=== PATIENT | female | born 2000 ===

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

== ENCOUNTER 2018-06-16 06:06 | Inpatient (IN) | payer MEDICAID, OTHER ==
[2018-06-16 06:07] VITALS: BMI 24.8
[2018-06-16] MEDS ORDERED: Sodium Chloride 0.9% 1,000 ML IV ONE ×2 (06:26→12:00)
--- NOTE | 2018-06-16 06:26 | C.PDOC ---
History Of Present Illness 17 year old female presents to the ED c/o sharp, stabbing abdominal pain that started approximately at 03:00. Patient denies fever, chills, nausea, vomit, diarrhea, dysuria, hematuria, back pain. Time Seen by Provider: 06/16/18 06:26 Chief Complaint (Nursing): Abdominal Pain History Per: Patient History/Exam Limitations: no limitations Onset/Duration Of Symptoms: Hrs (03:00) Current Symptoms Are (Timing): Still Present Context: Other Severity: Moderate Pain Scale Rating Of: 4 Location Of Pain/Discomfort: Diffuse Quality Of Discomfort: Sharp, Stabbing Associated Symptoms: denies: Nausea, Vomiting, Diarrhea, Urinary Symptoms Exacerbating Factors: None Alleviating Factors: None Recent travel outside of the [place]: No Additional History Per: Patient, Family Abnormal Vaginal Bleeding: No Past Medical History Reviewed: Historical Data, Nursing Documentation, Vital Signs Vital Signs: Last Vital Signs Temp 97.7 F 06/16/18 06:10 Pulse 94 H 06/16/18 06:10 Resp 20 06/16/18 06:10 BP 131/88 06/16/18 06:10 Pulse Ox 99 06/16/18 06:10 - Medical History PMH: Asthma, Diabetes (Type 1), HTN, Hypercholesterolemia, Hypothyroidism Denies: Chronic Kidney Disease Surgical History: No Surg Hx - [facility] Procedures OTHER SKIN & SUBQ I D (11/07/14) Family History: States: Unknown Family Hx - Social History Hx Tobacco Use: No Hx Alcohol Use: No Hx Substance Use: No - Immunization History Hx Tetanus Toxoid Vaccination: Yes Hx Influenza Vaccination: Yes Hx Pneumococcal Vaccination: Yes Review Of Systems Constitutional: Negative for: Fever, Chills Cardiovascular: Negative for: Chest Pain Respiratory: Negative for: Shortness of Breath Gastrointestinal: Positive for: Abdominal Pain. Negative for: Nausea, Vomiting, Diarrhea, Constipation Genitourinary: Negative for: Dysuria, Hematuria Musculoskeletal: Negative for: Back Pain Skin: Negative for: Rash Physical Exam - Physical Exam Appears: Non-toxic, No Acute Distress Skin: Warm, Dry Head: Normacephalic Eye(s): bilateral: Normal Inspection Oral Mucosa: Moist Neck: Supple Chest: Symmetrical Cardiovascular: Rhythm Regular Respiratory: No Rales, No Rhonchi, No Wheezing Gastrointestinal/Abdominal: Soft, Tenderness (diffuse ), Guarding (voluntary), No Rebound Back: Normal Inspection Extremity: Normal ROM Extremity: Bilateral: Atraumatic, Normal Color And Temperature, Normal ROM Neurological/Psych: Oriented x3, Normal Speech, Normal Cognition Gait: Steady ED Course And Treatment O2 Sat by Pulse Oximetry: 99 (ON RA) Pulse Ox Interpretation: Normal Progress Note: Plan: - Labs. - pepcid 20 mg IVP. - IV fluids. - UA Disposition Counseled Patient/Family Regarding: Studies Performed, Diagnosis - Disposition Disposition Time: 06:26 Condition: FAIR Forms: [employer] (Vietnamese) - Clinical Impression Clinical Impression: Abdominal pain - Scribe Statement The provider has reviewed the documentation as recorded by the Scribe Castillo Hayes All medical record entries made by the Scribe were at my direction and perso mónica dictated by me. I have reviewed the chart and agree that the record accurately reflects my personal performance of the history, physical exam, medical decision making, and the department course for this patient. I have also personally directed, reviewed, and agree with the discharge instructions and disposition. Physician Patient Turnover Patient Signed Over To: Buzz Hardy Handoff Comments: pending labs, re-eval and dispo
[2018-06-16] MEDS ORDERED: Sodium Chloride 0.9% 1,000 ML ONE ×2 (06:35→12:06)
[2018-06-16 06:38] LABS: BASO # 0.1 K/uL (0.0-0.2); BASO % 0.7 % (0.0-2.0); EOS # 0.2 K/uL (0.0-0.7); EOS % 1.9 % (0.0-4.0); HEMOGLOBIN 12.5 g/dL (11.0-16.0); LYMPH # 2.9 K/uL (1.0-4.3); LYMPH % 23.6 % (20.0-40.0); MEAN CORPUSCULAR HEMOGLOBIN 30.8 pg (27.0-31.0); MEAN CORPUSCULAR HGB CONC 33.5 g/dL (33.0-37.0); MEAN PLATELET VOLUME 10.5 fL (7.2-11.7); MONO # 0.5 K/uL (0.0-0.8); NEUT # 8.4 K/uL (1.8-7.0); NEUT % 69.8 % (50.0-75.0); RBC 4.05 Mil/uL (3.80-5.20); RED CELL DISTRIBUTION WIDTH 12.6 % (11.5-14.5); WHITE BLOOD COUNT 12.1 K/uL (4.8-10.8)
[2018-06-16 06:47] LABS: INR 0.9
[2018-06-16] MEDS ORDERED: Morphine 4 MG/ML VIAL ONE (07:02)
[2018-06-16 07:10] LABS: PROTHROMBIN TIME 9.4 SECONDS (9.7-12.2)
[2018-06-16 07:46] LABS: SQUAMOUS EPITHIAL 2 /hpf (0-5); URINE BACTERIA RARE (<OCC); URINE BILIRUBIN NEGATIVE (NEGATIVE); URINE BLOOD NEGATIVE (NEGATIVE); URINE CLARITY Clear (Clear); URINE COLOR Straw (YELLOW); URINE GLUCOSE (UA) NORMAL (Normal); URINE LEUKOCYTE ESTERASE 3+ Leu/uL (Negative); URINE PROTEIN NEGATIVE (NEGATIVE); URINE UROBILINOGEN NORMAL mg/dL (0.2-1.0)
[2018-06-16 07:50] LABS: HCG,QUALITATIVE URINE NEGATIVE (NEGATIVE)
[2018-06-16 08:08] LABS: ALB/GLOB RATIO 1.2 (1.0-2.1); ALBUMIN 3.8 g/dL (3.5-5.0); ALT/SGPT 16 U/L (9-52); AST/SGOT 17 U/L (14-36); BLOOD UREA NITROGEN 16 mg/dL (7-17); CALCIUM 8.4 mg/dl (8.6-10.4); GFR NON-AFRICAN AMERICAN > 60
--- NOTE | 2018-06-16 09:39 | RAD ---
Date of service: 06/16/2018 HISTORY: abd pain COMPARISON: 07/21/2017 FINDINGS: LUNGS: No active pulmonary disease. PLEURA: No significant pleural effusion identified, no pneumothorax apparent. CARDIOVASCULAR: No aortic atherosclerotic calcification present. Normal cardiac size. No pulmonary vascular congestion. OSSEOUS STRUCTURES: No significant abnormalities. VISUALIZED UPPER ABDOMEN: Normal. OTHER FINDINGS: None. IMPRESSION: No active disease.
[2018-06-16] MEDS ORDERED: Iodixanol 320 MG/ML 100 ML BOTTLE IV ONE (10:10)
--- NOTE | 2018-06-16 10:55 | CT ---
Date of service: 06/16/2018 PROCEDURE: CT Abdomen and Pelvis with contrast HISTORY: rlq pain COMPARISON: None available TECHNIQUE: Contrast dose: Radiation dose: Total exam DLP = 637.09 mGy-cm. This CT exam was performed using one or more of the following dose reduction techniques: Automated exposure control, adjustment of the mA and/or kV according to patient size, and/or use of iterative reconstruction technique. FINDINGS: LOWER THORAX: No visible consolidation, pleural effusion, or pneumothorax. LIVER: Hepatomegaly. Faint hypodensity by the falciform ligament, possibly focal fatty infiltration. GALLBLADDER AND BILE DUCTS: Unremarkable. PANCREAS: Unremarkable. SPLEEN: Unremarkable. ADRENALS: Unremarkable. KIDNEYS AND URETERS: The kidneys enhance symmetrically. No hydronephrosis or obstructing calculus identified. VASCULATURE: No aortic aneurysm. No atherosclerotic calcification or mural plaque present. BOWEL: Stomach is nondistended. Lack of oral contrast limits evaluation for bowel pathology. Bowel loops appear within normal limits of caliber without evidence of obstruction. APPENDIX: The appendix is dilated measuring approximately 11 mm in diameter and appears thick walled. PERITONEUM: No significant free fluid. No definite free air. LYMPH NODES: No bulky adenopathy identified. BLADDER: Unremarkable. REPRODUCTIVE: The uterus is present. Probable 1.8 cm right and 1.1 cm left ovarian cysts. BONES: No acute osseous abnormality is detected. OTHER FINDINGS: None. IMPRESSION: Thick-walled dilated appendix appears consistent with acute appendicitis. Correlate clinically. Bilateral pelvic cystic lesions appear consistent with ovarian cysts. Recommend pelvic ultrasound follow-up. Hepatomegaly. Faint hypodensity by the falciform ligament, possibly focal fatty infiltration. Emergent findings discussed with Dr. Hardy on 06/16/18 at 10:47 a.m.
[2018-06-16] MEDS ORDERED: (Novolin R) Insulin Human Regular 100 units/ml vial IVP ONE ×2 (12:00→16:58)
[2018-06-16] MEDS ORDERED: (Novolog) Insulin Aspart, Recombinant 100 u/ml 10 ml vial ONE ×2 (12:06→12:07)
[2018-06-16] MEDS: Sodium Chloride 0.9% 1,000 ML IV SCH ×2 (13:52→20:56)
--- NOTE | 2018-06-16 14:45 | CP.PCM.CON ---
<JayJacquelyn - Last Filed: 06/16/18 14:36> History of Present Illness - History of Present Illness History of Present Illness: General surgery consult note for Dr. Wiley Pt is a 17F with PMH of DM1, HTN, Asthma, hypothyroidism who presents with abdominal pain since yesterday AM. patient states that the pain was in the epigastrium and BL upper quadrants at first and then moved to the RLQ. patient states that it is unrelated to eating food, is worse when she is lying flat, and is sharp in nature. patient states that she has had orange colored diarrhea since yesterday AM, nausea but no vomiting, subjective fevers resolved with tylenol, increased urinary frequency, but no hematuria or dysuria, and BL lower back pain. patient denies any chest pain, SOB, or any other symptoms. Patient has never had a similar episode before PMH: HTN, DMI, asthma, hypothyroidism PSH: tooth abscess and neck cyst excision ALL: shellfish, lovenox Social: use vaporized nicotine, denies ETOH, denies drugs Review of Systems - Review of Systems All systems: reviewed and no additional remarkable complaints except (as per HPI) Past Patient History - Infectious Disease Hx of Infectious Diseases: None - Tetanus Immunizations Tetanus Immunization: Up to Date (All immunizations are up to date) - Past Medical History & Family History Past Medical History?: Yes Past Family History: Reviewed and not pertinent - Past Social History Smoking Status: vaporized nicotine Alcohol: None Drugs: Denies Home Situation {Lives}: With Family - CARDIAC Hx Hypercholesterolemia: Yes Hx Hypertension: Yes - PULMONARY Hx Asthma: Yes - NEUROLOGICAL Hx Neurological Disorder: No - HEENT Hx HEENT Problems: No - RENAL Hx Chronic Kidney Disease: No - ENDOCRINE/METABOLIC Hx Hypothyroidism: Yes - HEMATOLOGICAL/ONCOLOGICAL Hx Blood Disorders: No - INTEGUMENTARY Hx Dermatological Problems: No - MUSCULOSKELETAL/RHEUMATOLOGICAL Hx Musculoskeletal Disorders: No - GASTROINTESTINAL Hx Gastrointestinal Disorders: No - GENITOURINARY/GYNECOLOGICAL Hx Genitourinary Disorders: No - PSYCHIATRIC Hx Substance Use: No - SURGICAL HISTORY Hx Surgeries: Yes Other/Comment: oral surgery - ANESTHESIA Hx Anesthesia: Yes Hx Anesthesia Reactions: No Meds Allergies/Adverse Reactions: Allergies Allergy/AdvReac Type Severity Reaction Status Date / Time shellfish derived Allergy Severe ANAPHYLAXIS Verified 04/30/17 21:52 shrimp Allergy Severe ANAPHYLAXIS Verified 04/30/17 21:52 enoxaparin [From Lovenox] Allergy Mild RASH Verified 07/21/17 14:01 - Medications Medications: Current Medications Piperacillin Sod/Tazobactam (Sod 3.375 gm/ Sodium Chloride) 100 mls @ 200 ml s/hr IVPB Q8H NOLBERTO; Protocol Sodium Chloride (Sodium Chloride 0.9%) 1,000 mls @ 125 mls/hr IV .Q8H NOLBERTO Last Admin: 06/16/18 13:52 Dose: 125 mls/hr Physical Exam - Constitutional Appears: Well, Non-toxic, No Acute Distress - Head Exam Head Exam: ATRAUMATIC, NORMOCEPHALIC - Eye Exam Eye Exam: Normal appearance. absent: Conjunctival injection, Scleral icterus - ENT Exam ENT Exam: Mucous Membranes Moist, Normal Oropharynx - Respiratory Exam Respiratory Exam: NORMAL BREATHING PATTERN. absent: Accessory Muscle Use, Respiratory Distress - Cardiovascular Exam Cardiovascular Exam: RRR - GI/Abdominal Exam GI & Abdominal Exam: Soft, Tenderness (RLQ severe tenderness to palpation, referred pain from the RUQ and LLQ). absent: Distended, Firm, Rebound, Rigid - Extremities Exam Extremities exam: Positive for: pedal pulses present. Negative for: calf tender ness, pedal edema - Back Exam Back exam: CVA tenderness (L), CVA tenderness (R) - Neurological Exam Neurological exam: Alert, Oriented x3 - Psychiatric Exam Psychiatric exam: Normal Affect, Normal Mood - Skin Skin Exam: Dry, Normal Color, Warm Results - Vital Signs Recent Vital Signs: Last Vital Signs Temp 98.1 F 06/16/18 13:58 Pulse 93 H 06/16/18 13:58 Resp 20 06/16/18 13:58 BP 103/70 06/16/18 13:58 Pulse Ox 96 06/16/18 13:58 - Labs Result Diagrams: 06/16/18 06:36 06/16/18 07:34 Labs: Laboratory Results - last 24 hr 06/16/18 06/16/18 06/16/18 06:36 06:36 06:53 WBC 12.1 H RBC 4.05 Hgb 12.5 Hct 37.3 MCV 92.0 MCH 30.8 MCHC 33.5 RDW 12.6 Plt Count 240 MPV 10.5 Neut % (Auto) 69.8 Lymph % (Auto) 23.6 [place] % (Auto) 4.0 Eos % (Auto) 1.9 Baso % (Auto) 0.7 Neut # (Auto) 8.4 H Lymph # (Auto) 2.9 [place] # (Auto) 0.5 Eos # (Auto) 0.2 Baso # (Auto) 0.1 PT 9.4 L INR 0.9 APTT 37 H Sodium Potassium Chloride Carbon Dioxide Anion Gap BUN Creatinine Est GFR ( Amer) Est GFR (Non-Af Amer) POC Glucose (mg/dL) Random Glucose Calcium Total Bilirubin AST ALT Alkaline Phosphatase Total Protein Albumin Globulin Albumin/Globulin Ratio Urine Color Straw Urine Clarity Clear Urine pH 6.0 Ur Specific [place] 1.011 Urine Protein Negative Urine Glucose (UA) Normal Urine Ketones Negative Urine Blood Negative Urine Nitrate Negative Urine Bilirubin Negative Urine Urobilinogen Normal Ur Leukocyte Esterase 3+ H Urine WBC (Auto) 9 H Urine RBC (Auto) 2 Ur Squamous Epith Cells 2 Urine Bacteria Rare Urine HCG, Qual Negative 06/16/18 06/16/18 06/16/18 07:29 07:34 11:57 WBC RBC Hgb Hct MCV MCH MCHC RDW Plt Count MPV Neut % (Auto) Lymph % (Auto) [place] % (Auto) Eos % (Auto) Baso % (Auto) Neut # (Auto) Lymph # (Auto) [place] # (Auto) Eos # (Auto) Baso # (Auto) PT INR APTT Sodium 137 Potassium 4.0 Chloride 104 Carbon Dioxide 22 Anion Gap 15 BUN 16 Creatinine 0.6 L Est GFR ( Amer) > 60 Est GFR (Non-Af Amer) > 60 POC Glucose (mg/dL) 283 H 492 H* Random Glucose 289 H Calcium 8.4 L Total Bilirubin 0.3 AST 17 ALT 16 Alkaline Phosphatase 141 H Total Protein 7.0 Albumin 3.8 Globulin 3.2 Albumin/Globulin Ratio 1.2 Urine Color Urine Clarity Urine pH Ur Specific [place] Urine Protein Urine Glucose (UA) Urine Ketones Urine Blood Urine Nitrate Urine Bilirubin Urine Urobilinogen Ur Leukocyte Esterase Urine WBC (Auto) Urine RBC (Auto) Ur Squamous Epith Cells Urine Bacteria Urine HCG, Qual 06/16/18 13:13 WBC RBC Hgb Hct MCV MCH MCHC RDW Plt Count MPV Neut % (Auto) Lymph % (Auto) [place] % (Auto) Eos % (Auto) Baso % (Auto) Neut # (Auto) Lymph # (Auto) [place] # (Auto) Eos # (Auto) Baso # (Auto) PT INR APTT Sodium Potassium Chloride Carbon Dioxide Anion Gap BUN Creatinine Est GFR ( Amer) Est GFR (Non-Af Amer) POC Glucose (mg/dL) 262 H Random Glucose Calcium Total Bilirubin AST ALT Alkaline Phosphatase Total Protein Albumin Globulin Albumin/Globulin Ratio Urine Color Urine Clarity Urine pH Ur Specific [place] Urine Protein Urine Glucose (UA) Urine Ketones Urine Blood Urine Nitrate Urine Bilirubin Urine Urobilinogen Ur Leukocyte Esterase Urine WBC (Auto) Urine RBC (Auto) Ur Squamous Epith Cells Urine Bacteria Urine HCG, Qual - Imaging and Cardiology CT scan - abdomen Status: Image reviewed by me, Report reviewed by me Assessment & Plan - Assessment and Plan (Free Text) Assessment: 17F with Acute appendicitis Plan: OR this afternoon for laparoscopic appendectomy NPO IV antibiotics PRN pain medication IV fluids Control blood sugar Discussed with Dr. Inez Thompson, PGY2 <Alexandr Wiley B - Last Filed: 06/19/18 15:47> Results - Vital Signs Recent Vital Signs: Last Vital Signs Temp 98.3 F 06/17/18 07:20 Pulse 99 H 06/17/18 07:20 Resp 20 06/17/18 07:20 BP 119/75 06/17/18 07:20 Pulse Ox 92 L 06/17/18 07:20 - Labs Result Diagrams: 06/17/18 06:07 06/17/18 06:07 Attending/Attestation - Attestation I have personally seen and examined this patient.: Yes I have fully participated in the care of the patient.: Yes I have reviewed all pertinent clinical information: Yes Notes (Text): Pt was seen and examined at bedside Agree with above note and assessment Pt with Abdominal Pain and vomiting Abdomen: Soft, ND, Mild tender in RLQ Labs and Radiology reviewed Ass: Acute Appendicitis Plan: IV antibiotics OR for Lap Appendectomy Consent NPO, IVF Plan d.w pt in detail Risk and benefit explained in detail.
[2018-06-16] MEDS ORDERED: ceFAZolin IV 1 gm in Dextrose 1 GM/50 ML BAG IVPB ONE (15:15)
[2018-06-16] MEDS ORDERED: Lidocaine/Epinephrine 1% 1:100000 10 ML IJ ONE (15:16)
[2018-06-16] MEDS ORDERED: Bupivacaine 0.25% 20 ML INJ IJ ONE (15:16)
[2018-06-16] MEDS ORDERED: (Novolin R) Insulin Human Regular 100 units/ml vial IVP STA (15:29)
[2018-06-16] MEDS ORDERED: (Novolin R) Insulin Human Regular 100 units/ml vial ONE ×2 (15:34→17:08)
[2018-06-16] MEDS ORDERED: Propofol 10 mg/ml Inj (20 ML) ONE (15:39)
[2018-06-16] MEDS ORDERED: Neostigmine Methylsulfate 3mg/3ml Syringe IV ONE (16:30)
[2018-06-16] MEDS ORDERED: ePHEDrine 50 mg/ml Inj ONE (16:39)
[2018-06-16] MEDS ORDERED: Succinylcholine Chloride 20 mg/ml Syr (5 ml) IV ONE (16:56)
[2018-06-16] MEDS ORDERED: Rocuronium 10 mg/ml (5 ml) ONE (16:56)
[2018-06-16] MEDS ORDERED: HYDROmorphone 0.5 mg/0.5 ml ISec IVP PRN (17:04)
--- NOTE | 2018-06-16 17:05 | PCM.SURG1 ---
Surgeon's Initial Post Op Note - Surgeon's Notes Surgeon: Dr. Wiley Air Conditioning Mechanic: Jacquelyn Thompson, PGY2; Hilary FLOOD Type of Anesthesia: General Endo Pre-Operative Diagnosis: acute appendicitis Operative Findings: acute early appendicitis, some sero-sanguinous free fluid in the pelvis, no abscess Post-Operative Diagnosis: acute appendicitis Operation Performed: laparoscopic appendectomy Specimen/Specimens Removed: appendix Estimated Blood Loss: EBL {In ML}: 10 Date of Surgery/Procedure: 06/16/18 Time of Surgery/Procedure: 15:30
[2018-06-16 18:28] VITALS: RESP 20
[2018-06-16] MEDS: Piperacillin/Tazobact 3.375 GM in Sodium Chloride 100 ML IVPB SCH (19:51)
--- NOTE | 2018-06-16 21:18 | CP.PCM.HP ---
Past Patient History - Infectious Disease Hx of Infectious Diseases: None - Tetanus Immunizations Tetanus Immunization: Up to Date (All immunizations are up to date) - Past Medical History & Family History Past Medical History?: Yes Past Family History: Reviewed and not pertinent - Past Social History Smoking Status: vaporized nicotine Alcohol: None Drugs: Denies Home Situation {Lives}: With Family - CARDIAC Hx Hypercholesterolemia: Yes Hx Hypertension: Yes - PULMONARY Hx Asthma: Yes - NEUROLOGICAL Hx Neurological Disorder: No - HEENT Hx HEENT Problems: No - RENAL Hx Chronic Kidney Disease: No - ENDOCRINE/METABOLIC Hx Hypothyroidism: Yes - HEMATOLOGICAL/ONCOLOGICAL Hx Blood Disorders: No - INTEGUMENTARY Hx Dermatological Problems: No - MUSCULOSKELETAL/RHEUMATOLOGICAL Hx Musculoskeletal Disorders: No - GASTROINTESTINAL Hx Gastrointestinal Disorders: No - GENITOURINARY/GYNECOLOGICAL Hx Genitourinary Disorders: No - PSYCHIATRIC Hx Substance Use: No - SURGICAL HISTORY Hx Surgeries: Yes Other/Comment: oral surgery - ANESTHESIA Hx Anesthesia: Yes Hx Anesthesia Reactions: No Meds Allergies/Adverse Reactions: Allergies Allergy/AdvReac Type Severity Reaction Status Date / Time shellfish derived Allergy Severe ANAPHYLAXIS Verified 04/30/17 21:52 shrimp Allergy Severe ANAPHYLAXIS Verified 04/30/17 21:52 enoxaparin [From Lovenox] Allergy Mild RASH Verified 07/21/17 14:01 Results - Vital Signs Recent Vital Signs: Last Vital Signs Temp 98.0 F 06/16/18 18:27 Pulse 88 06/16/18 20:08 Resp 20 06/16/18 18:27 BP 109/76 06/16/18 18:27 Pulse Ox 98 06/16/18 18:27 - Labs Result Diagrams: 06/16/18 06:36 06/16/18 07:34 Labs: Laboratory Results - last 24 hr 06/16/18 06/16/18 06/16/18 06:36 06:36 06:53 WBC 12.1 H RBC 4.05 Hgb 12.5 Hct 37.3 MCV 92.0 MCH 30.8 MCHC 33.5 RDW 12.6 Plt Count 240 MPV 10.5 Neut % (Auto) 69.8 Lymph % (Auto) 23.6 [place] % (Auto) 4.0 Eos % (Auto) 1.9 Baso % (Auto) 0.7 Neut # (Auto) 8.4 H Lymph # (Auto) 2.9 [place] # (Auto) 0.5 Eos # (Auto) 0.2 Baso # (Auto) 0.1 PT 9.4 L INR 0.9 APTT 37 H Sodium Potassium Chloride Carbon Dioxide Anion Gap BUN Creatinine Est GFR ( Amer) Est GFR (Non-Af Amer) POC Glucose (mg/dL) Random Glucose Calcium Total Bilirubin AST ALT Alkaline Phosphatase Total Protein Albumin Globulin Albumin/Globulin Ratio Urine Color Straw Urine Clarity Clear Urine pH 6.0 Ur Specific [place] 1.011 Urine Protein Negative Urine Glucose (UA) Normal Urine Ketones Negative Urine Blood Negative Urine Nitrate Negative Urine Bilirubin Negative Urine Urobilinogen Normal Ur Leukocyte Esterase 3+ H Urine WBC (Auto) 9 H Urine RBC (Auto) 2 Ur Squamous Epith Cells 2 Urine Bacteria Rare Urine HCG, Qual Negative 06/16/18 06/16/18 06/16/18 07:29 07:34 11:57 WBC RBC Hgb Hct MCV MCH MCHC RDW Plt Count MPV Neut % (Auto) Lymph % (Auto) [place] % (Auto) Eos % (Auto) Baso % (Auto) Neut # (Auto) Lymph # (Auto) [place] # (Auto) Eos # (Auto) Baso # (Auto) PT INR APTT Sodium 137 Potassium 4.0 Chloride 104 Carbon Dioxide 22 Anion Gap 15 BUN 16 Creatinine 0.6 L Est GFR ( Amer) > 60 Est GFR (Non-Af Amer) > 60 POC Glucose (mg/dL) 283 H 492 H* Random Glucose 289 H Calcium 8.4 L Total Bilirubin 0.3 AST 17 ALT 16 Alkaline Phosphatase 141 H Total Protein 7.0 Albumin 3.8 Globulin 3.2 Albumin/Globulin Ratio 1.2 Urine Color Urine Clarity Urine pH Ur Specific [place] Urine Protein Urine Glucose (UA) Urine Ketones Urine Blood Urine Nitrate Urine Bilirubin Urine Urobilinogen Ur Leukocyte Esterase Urine WBC (Auto) Urine RBC (Auto) Ur Squamous Epith Cells Urine Bacteria Urine HCG, Qual 06/16/18 06/16/18 06/16/18 13:13 15:26 16:15 WBC RBC Hgb Hct MCV MCH MCHC RDW Plt Count MPV Neut % (Auto) Lymph % (Auto) [place] % (Auto) Eos % (Auto) Baso % (Auto) Neut # (Auto) Lymph # (Auto) [place] # (Auto) Eos # (Auto) Baso # (Auto) PT INR APTT Sodium Potassium Chloride Carbon Dioxide Anion Gap BUN Creatinine Est GFR ( Amer) Est GFR (Non-Af Amer) POC Glucose (mg/dL) 262 H 344 H 296 H Random Glucose Calcium Total Bilirubin AST ALT Alkaline Phosphatase Total Protein Albumin Globulin Albumin/Globulin Ratio Urine Color Urine Clarity Urine pH Ur Specific [place] Urine Protein Urine Glucose (UA) Urine Ketones Urine Blood Urine Nitrate Urine Bilirubin Urine Urobilinogen Ur Leukocyte Esterase Urine WBC (Auto) Urine RBC (Auto) Ur Squamous Epith Cells Urine Bacteria Urine HCG, Qual 06/16/18 17:58 WBC RBC Hgb Hct MCV MCH MCHC RDW Plt Count MPV Neut % (Auto) Lymph % (Auto) [place] % (Auto) Eos % (Auto) Baso % (Auto) Neut # (Auto) Lymph # (Auto) [place] # (Auto) Eos # (Auto) Baso # (Auto) PT INR APTT Sodium Potassium Chloride Carbon Dioxide Anion Gap BUN Creatinine Est GFR ( Amer) Est GFR (Non-Af Amer) POC Glucose (mg/dL) 378 H Random Glucose Calcium Total Bilirubin AST ALT Alkaline Phosphatase Total Protein Albumin Globulin Albumin/Globulin Ratio Urine Color Urine Clarity Urine pH Ur Specific [place] Urine Protein Urine Glucose (UA) Urine Ketones Urine Blood Urine Nitrate Urine Bilirubin Urine Urobilinogen Ur Leukocyte Esterase Urine WBC (Auto) Urine RBC (Auto) Ur Squamous Epith Cells Urine Bacteria Urine HCG, Qual
[2018-06-16] MEDS: Oxycodone/Acetaminophen 5/325 mg Tab PO PRN (21:27)
[2018-06-16] MEDS ORDERED: (Lantus) Insulin Glargine, Recombinant SC SCH (22:00)
[2018-06-17] MEDS: Piperacillin/Tazobact 3.375 GM in Sodium Chloride 100 ML IVPB SCH ×2 (02:27→10:27)
[2018-06-17] MEDS: Sodium Chloride 0.9% 1,000 ML IV SCH (05:40)
[2018-06-17 06:17] LABS: BASO % 0.5 % (0.0-2.0); EOS # 0.1 K/uL (0.0-0.7); EOS % 1.4 % (0.0-4.0); HEMOGLOBIN 10.8 g/dL (11.0-16.0); LYMPH # 2.3 K/uL (1.0-4.3); LYMPH % 26.3 % (20.0-40.0); MEAN CORPUSCULAR HEMOGLOBIN 30.8 pg (27.0-31.0); MEAN CORPUSCULAR HGB CONC 33.8 g/dL (33.0-37.0); MEAN PLATELET VOLUME 10.5 fL (7.2-11.7); MONO # 0.4 K/uL (0.0-0.8); MONO % 4.3 % (0.0-10.0); NEUT # 5.9 K/uL (1.8-7.0); NEUT % 67.5 % (50.0-75.0); RBC 3.51 Mil/uL (3.80-5.20); RED CELL DISTRIBUTION WIDTH 12.5 % (11.5-14.5); WHITE BLOOD COUNT 8.7 K/uL (4.8-10.8)
--- NOTE | 2018-06-17 06:29 | HP ---
CHIEF COMPLAINT: Abdominal pain. HISTORY OF PRESENT ILLNESS: This is a 17-year-old female, well known to me with history of type 1 diabetes, on insulin, and she developed sharp right lower quadrant abdominal pain associated with nausea, vomiting at 3 a.m., this morning. She had body aches, tiredness. She denies any dysuria, hematuria, pyuria. She denies any sneezing, itchy eyes, itchy nose. She denies any prior episodes like this before. She denies any history of fever, chills. She denies any history of abdominal trauma. She denies any vaginal discharge. PAST MEDICAL HISTORY: Type 1 diabetes. SOCIAL HISTORY: Nonsmoker, non-EtOH user. FAMILY HISTORY: Noncontributory. CURRENT MEDICATIONS: Insulin. PHYSICAL EXAMINATION: GENERAL: A young female. Postop, she is eating diet, tolerating well. VITAL SIGNS: BP 109/76, pulse 88, respiratory rate 20, temperature 98. HEENT: Atraumatic, normocephalic. Negative pallor. Negative jaundice. NECK: Supple. No JVD. CHEST: Chest wall, bilateral symmetrical expansion. LUNGS: Clear. CARDIOVASCULAR SYSTEM: S1, S2 regular. ABDOMEN: Postop, bowel sounds are present. RECTAL AND PELVIC: Deferred. CENTRAL NERVOUS SYSTEM: Awake, alert, oriented x3. SKIN: No rashes. No bruises. No purpura. ASSESSMENT: 1. Acute appendicitis. 2. Type 1 diabetes. 3. Dehydration. PLAN: Postop care, diet. Monitor the patient. Siva Sharma MD
[2018-06-17 06:34] LABS: BLOOD UREA NITROGEN 8 mg/dL (7-17); CALCIUM 7.9 mg/dl (8.6-10.4); GFR NON-AFRICAN AMERICAN > 60
[2018-06-17] MEDS: Oxycodone/Acetaminophen 5/325 mg Tab PO PRN (07:04)
[2018-06-17] MEDS: (Novolin R) Insulin Human Regular 100 units/ml vial SC SCH ×2 (07:28→12:24)
[2018-06-17 08:07] VITALS: BP 119/75; PULSE 99; TEMP 98.3; O2SAT 92
--- NOTE | 2018-06-17 08:41 | CP.PCM.PN ---
<Jacquelyn Thompson - Last Filed: 06/18/18 04:15> Subjective - Date & Time of Evaluation Date of Evaluation: 06/17/18 Time of Evaluation: 07:00 - Subjective Subjective: Surgery progress note for Dr. Wiley Patient seen and examined this AM. No adverse events overnight. patient tolerated diet, pain controlled with PO pain medication, and patient voiding and ambulating freely. Objective - Vital Signs/Intake and Output Vital Signs (last 24 hours): Temp Pulse Resp BP Pulse Ox 98.3 F 99 H 20 119/75 92 L 06/17/18 07:20 06/17/18 07:20 06/17/18 07:20 06/17/18 07:20 06/17/18 07:20 Intake and Output: 06/17/18 06/17/18 06:59 18:59 Intake Total 1725 Balance 1725 - Medications Medications: Current Medications Docusate Sodium (Colace) 100 mg PO DAILY [facility] Hydromorphone HCl (Dilaudid) 0.5 mg IVP Q15M PRN PRN Reason: Pain, severe (8-10) Piperacillin Sod/Tazobactam (Sod 3.375 gm/ Sodium Chloride) 100 mls @ 200 mls/hr IVPB Q8H [facility]; Protocol Last Admin: 06/17/18 02:27 Dose: 200 mls/hr Insulin Aspart (Novolog) 6 unit SC TID [facility] Insulin Glargine (Lantus) 30 unit SC HS [facility] Last Admin: 06/16/18 21:39 Dose: 30 units Insulin Human Regular (Novolin R) 0 unit SC ACHS [facility]; Protocol Last Admin: 06/17/18 07:28 Dose: Not Given Ondansetron HCl (Zofran Inj) 4 mg IVP Q6H PRN PRN Reason: Nausea/Vomiting Oxycodone/Acetaminophen (Percocet 5/325 Mg Tab) 1 tab PO Q4H PRN PRN Reason: Pain, moderate (4-7) Stop: 06/19/18 16:57 Last Admin: 06/17/18 07:04 Dose: 1 tab - Labs Labs: 06/17/18 06:07 06/17/18 06:07 PT 9.4 SECONDS (9.7-12.2) L 06/16/18 06:36 INR 0.9 06/16/18 06:36 APTT 37 SECONDS (21-34) H 06/16/18 06:36 - Constitutional Appears: Well, Non-toxic, No Acute Distress - Head Exam Head Exam: ATRAUMATIC, NORMOCEPHALIC - Eye Exam Eye Exam: Normal appearance. absent: Conjunctival injection, Scleral icterus - ENT Exam ENT Exam: Mucous Membranes Moist, Normal Oropharynx - Respiratory Exam Respiratory Exam: NORMAL BREATHING PATTERN. absent: Accessory Muscle Use, Respiratory Distress - Cardiovascular Exam Cardiovascular Exam: RRR - GI/Abdominal Exam GI & Abdominal Exam: Soft, Tenderness (cheyanne-incisional, RLQ). absent: Dist ended, Rebound Additional comments: dressings c/d/i - Extremities Exam Extremities Exam: absent: Calf Tenderness, Pedal Edema, Tenderness - Neurological Exam Neurological Exam: Alert, Awake, Oriented x3 - Psychiatric Exam Psychiatric exam: Normal Affect, Normal Mood - Skin Skin Exam: Dry, Normal Color, Warm Assessment and Plan - Assessment and Plan (Free Text) Assessment: 17F POD#1 s/p laparoscopic appendectomy Plan: Pt is clear for discharge from a surgical standpoint with follow up in Dr. Wiley's office in 2 weeks Instructions for dressings, activities, etc in the discharge instructions PRN PO pain medication Encourage ambulation and incentive spirometer use Pt should follow up with collar pointer regarding ovarian cysts and vaginal discharge Discussed with Dr. Inez Thompson, PGY2 <Alexandr Wiley - Last Filed: 06/19/18 15:48> Objective - Vital Signs/Intake and Output Vital Signs (last 24 hours): Temp Pulse Resp BP Pulse Ox 98.3 F 99 H 20 119/75 92 L 06/17/18 07:20 06/17/18 07:20 06/17/18 07:20 06/17/18 07:20 06/17/18 07:20 - Labs Labs: 06/17/18 06:07 06/17/18 06:07 PT 9.4 SECONDS (9.7-12.2) L 06/16/18 06:36 INR 0.9 06/16/18 06:36 APTT 37 SECONDS (21-34) H 06/16/18 06:36 Attending/Attestation - Attestation I have personally seen and examined this patient.: Yes I have fully participated in the care of the patient.: Yes I have reviewed all pertinent clinical information, including history, physical exam and plan: Yes Notes (Text): Pt is improving clinically C/ o Incisional Pain DC home f.u as out pt Plan d.w pt in detail Risk and benefit explained in detail.
[2018-06-17] MEDS ORDERED: (Novolog) Insulin Aspart, Recombinant 100 u/ml 10 ml vial SC SCH (10:00)
--- NOTE | 2018-06-17 12:14 | CP.PCM.PN ---
Subjective - Date & Time of Evaluation Date of Evaluation: 06/17/18 Time of Evaluation: 12:14 - Subjective Subjective: PATIENT SEEN AND EXAMINED AT THE BEDSIDE Objective - Vital Signs/Intake and Output Vital Signs (last 24 hours): Temp Pulse Resp BP Pulse Ox 98.3 F 99 H 20 119/75 92 L 06/17/18 07:20 06/17/18 07:20 06/17/18 07:20 06/17/18 07:20 06/17/18 07:20 Intake and Output: 06/17/18 06/17/18 06:59 18:59 Intake Total 1725 Balance 1725 - Medications Medications: Current Medications Docusate Sodium (Colace) 100 mg PO DAILY [facility] Last Admin: 06/17/18 09:35 Dose: 100 mg Hydromorphone HCl (Dilaudid) 0.5 mg IVP Q15M PRN PRN Reason: Pain, severe (8-10) Piperacillin Sod/Tazobactam (Sod 3.375 gm/ Sodium Chloride) 100 mls @ 200 mls/hr IVPB Q8H [facility]; Protocol Last Admin: 06/17/18 10:27 Dose: 200 mls/hr Insulin Aspart (Novolog) 6 unit SC TID [facility] Last Admin: 06/17/18 09:35 Dose: Not Given Insulin Glargine (Lantus) 30 unit SC HS [facility] Last Admin: 06/16/18 21:39 Dose: 30 units Insulin Human Regular (Novolin R) 0 unit SC ACHS [facility]; Protocol Last Admin: 06/17/18 07:28 Dose: Not Given Ondansetron HCl (Zofran Inj) 4 mg IVP Q6H PRN PRN Reason: Nausea/Vomiting Oxycodone/Acetaminophen (Percocet 5/325 Mg Tab) 1 tab PO Q4H PRN PRN Reason: Pain, moderate (4-7) Stop: 06/19/18 16:57 Last Admin: 06/17/18 07:04 Dose: 1 tab - Labs Labs: 06/17/18 06:07 06/17/18 06:07 PT 9.4 SECONDS (9.7-12.2) L 06/16/18 06:36 INR 0.9 06/16/18 06:36 APTT 37 SECONDS (21-34) H 06/16/18 06:36 Assessment and Plan - Assessment and Plan (Free Text) Assessment: Call Dr. Wiley's office for follow up appointment in 2 weeks Leave band-aids on for 5 days, once you remove the outer bandaids you may shower White tape underneath bandaids stay on until they fall off No lifting >10 pounds for 4-6 weeks Take pain medication PRN for pain and stool softener if you take pain medication Call Dr. Wiley's office or come to ER for fever >100.4 after tylenol, severe apin, or drainage from incisions or any other concerning symptoms.
--- NOTE | 2018-06-17 18:52 | CP.PCM.CON ---
History of Present Illness - History of Present Illness History of Present Illness: diabetes type 1 Past Patient History - Infectious Disease Hx of Infectious Diseases: None - Tetanus Immunizations Tetanus Immunization: Up to Date (All immunizations are up to date) - Past Medical History & Family History Past Medical History?: Yes Past Family History: Reviewed and not pertinent - Past Social History Smoking Status: vaporized nicotine Alcohol: None Drugs: Denies Home Situation {Lives}: With Family - CARDIAC Hx Hypercholesterolemia: Yes Hx Hypertension: Yes - PULMONARY Hx Asthma: Yes - NEUROLOGICAL Hx Neurological Disorder: No - HEENT Hx HEENT Problems: No - RENAL Hx Chronic Kidney Disease: No - ENDOCRINE/METABOLIC Hx Hypothyroidism: Yes - HEMATOLOGICAL/ONCOLOGICAL Hx Blood Disorders: No - INTEGUMENTARY Hx Dermatological Problems: No - MUSCULOSKELETAL/RHEUMATOLOGICAL Hx Musculoskeletal Disorders: No - GASTROINTESTINAL Hx Gastrointestinal Disorders: No - GENITOURINARY/GYNECOLOGICAL Hx Genitourinary Disorders: No - PSYCHIATRIC Hx Substance Use: No - SURGICAL HISTORY Hx Surgeries: Yes Other/Comment: oral surgery - ANESTHESIA Hx Anesthesia: Yes Hx Anesthesia Reactions: No Meds Home Medications: Home Medication List Medication Instructions Recorded Confirmed Type Sennosides/Docusate Sodium [Colace 1 each PO BID #28 tablet 06/17/18 Rx 2-in-1 Tablet] oxyCODONE/Acetaminophen [Percocet 1 ea PO Q4H #18 tab 06/17/18 Rx 5/325 mg Tab] Allergies/Adverse Reactions: Allergies Allergy/AdvReac Type Severity Reaction Status Date / Time shellfish derived Allergy Severe ANAPHYLAXIS Verified 04/30/17 21:52 shrimp Allergy Severe ANAPHYLAXIS Verified 04/30/17 21:52 enoxaparin [From Lovenox] Allergy Mild RASH Verified 07/21/17 14:01 Results - Vital Signs Recent Vital Signs: Last Vital Signs Temp 98.3 F 06/17/18 07:20 Pulse 99 H 06/17/18 07:20 Resp 20 06/17/18 07:20 BP 119/75 06/17/18 07:20 Pulse Ox 92 L 06/17/18 07:20 - Labs Result Diagrams: 06/17/18 06:07 06/17/18 06:07 Labs: Laboratory Results - last 24 hr 06/16/18 06/17/18 06/17/18 21:11 06:07 06:07 WBC 8.7 RBC 3.51 L Hgb 10.8 L Hct 31.9 L MCV 91.0 MCH 30.8 MCHC 33.8 RDW 12.5 Plt Count 208 MPV 10.5 Neut % (Auto) 67.5 Lymph % (Auto) 26.3 [place] % (Auto) 4.3 Eos % (Auto) 1.4 Baso % (Auto) 0.5 Neut # (Auto) 5.9 Lymph # (Auto) 2.3 [place] # (Auto) 0.4 Eos # (Auto) 0.1 Baso # (Auto) 0.0 Sodium 137 Potassium 3.7 Chloride 101 Carbon Dioxide 23 Anion Gap 16 BUN 8 Creatinine 0.7 Est GFR ( Amer) > 60 Est GFR (Non-Af Amer) > 60 POC Glucose (mg/dL) 230 H Random Glucose 108 H Calcium 7.9 L Phosphorus 4.3 Magnesium 1.7 06/17/18 06/17/18 06:27 11:06 WBC RBC Hgb Hct MCV MCH MCHC RDW Plt Count MPV Neut % (Auto) Lymph % (Auto) [place] % (Auto) Eos % (Auto) Baso % (Auto) Neut # (Auto) Lymph # (Auto) [place] # (Auto) Eos # (Auto) Baso # (Auto) Sodium Potassium Chloride Carbon Dioxide Anion Gap BUN Creatinine Est GFR ( Amer) Est GFR (Non-Af Amer) POC Glucose (mg/dL) 102 204 H Random Glucose Calcium Phosphorus Magnesium Assessment & Plan (1) Uncontrolled type 1 diabetes mellitus Assessment and Plan: Endocrine consult reason for consult: uncontrolled diabetes Source: patient and chart review Yefri Mirza is 17 y/o admitted for abdomial pain found with appendicitis s/p laproscopic appendectomy & found with glucose > 400 as per pt. has DM type 1 since age of 1 (-) neuropathy , (-) retinopathy , (-) nephropathy (-) CAD (-) PVD outpatient diabetes management regimen : lantus 30 units sq daily & Humalog scale with meals blood glucose log :200's one episode 102 NO hypoglycemia and also hypothyroidism also since age of 1 , on synthroid 125 mcg po qd Allergy shellfish Past medical history:asthma Past surgical history: oral abcess & appendectomy Psychiatry history: denies Social history: denies smoking , ETOH use , illicit drug use Family history: mother with dm ROS: Constitutional: denies fever, tiredness/weakness. HEENT: denies earache, change in voice .Respiratory: denies cough, sob . CVS :no chest pain, no palpitations . Abdomen: (+) abdominal pain, denies nausea /vomiting, no change bowel movement. [employer] : denies light-headedness, dizziness. Extremities: no edema, no tremors. Skin: no itching, no rash [facility] 06/07/2018 Physical exam Well-developed AAO x3 , ,NAD VSS HEENT: norm cephalic, atraumatic, no lid lag , no exophthalmos NECK: supple, no palpable lymphadenopathy THYROID: no palpable thyromegaly, not tender CHEST: fair air entry, bilateral, CVS: S1,S2 ABDOMEN: bowel sound present,mild tenderness , benign, obese, no wide purple striae , no bruises, 3 covered laparoscopic EXTREMITIES: no edema, clubbing or cyanosis, no palpable hand tremors Skin: no acanthosis nigricans -lab: reviewed Assessment: uncontrolled type 1 dm hypothyroid /Hashimotos's acute appendicitis s/p laparocopic appendectomy plan : continue lantus 30 units qd continue Humalog scale with meals continue synthroid 125 mcg po qd , right way obtain a1c & TSH Thank you for allowing me to participate in the care of the patient, we will follow with you. Franky Kaur # [phone] office Fridays & Saturdays address: [address] [place] [address] ,phone # [phone] ,FAX [phone] Status: Acute (2) Hypothyroid Status: Acute (3) Acute appendicitis Status: Acute
--- NOTE | 2018-06-17 21:46 | CARD ---
APPROVED REPORT Date of service: 06/16/2018 EKG Measurement Heart [id number] <Conclusion> Normal sinus rhythm Nonspecific T wave abnormality Abnormal ECG
--- NOTE | 2018-06-18 06:35 | DS ---
DISCHARGE DIAGNOSES: Include, 1. Appendicitis. 2. Dehydration. 3. Type 1 diabetes. HISTORY OF PRESENT ILLNESS: This is a 17-year-old female, well known to me with history of type 1 diabetes, came in because of abdominal pain. She was found to have acute appendicitis. She underwent cholecystectomy, and the patient is for discharge. CONDITION UPON DISCHARGE: Stable. The patient was treated with Accu-chek sliding scale, monitored closely. The patient's blood pressure in the 119/75, pulse 99, respiratory rate 20, temperature 98.3. WBC 8.7, hemoglobin 10.8, hematocrit 31.9, platelets 207. Sodium 137, potassium 3.7, chloride , bicarb 23, BUN 6, creatinine 0.7, and patient is stable. Siva Sharma MD
--- NOTE | 2018-06-19 02:17 | OP ---
PROCEDURE DATE: 06/16/2018 PREOPERATIVE DIAGNOSES: Acute appendicitis and leukocytosis. POSTOPERATIVE DIAGNOSES: Acute appendicitis and leukocytosis. PROCEDURE DONE: Laparoscopic appendectomy. SURGEON: Alexandr Wiley MD ASSISTANTS: ALEENA Hubbard and Jacquelyn Thompson DO ANESTHESIA: General endotracheal tube anesthesia. ESTIMATED BLOOD LOSS: Around 10 mL. DRAINS: None. PATHOLOGY: Appendix was sent for the pathology. COMPLICATIONS: None. INTRAOPERATIVE FINDINGS: The patient had tip appendicitis without any pelvic abscess or any collection. DESCRIPTION OF PROCEDURE: On intraoperative steps, this is a 17-year-old female who was diagnosed with acute appendicitis. The patient was consented for the laparoscopic appendectomy, possible open. Brought to the OR, placed supine on the operating table. After induction of the anesthesia, the abdomen was prepped and draped in the usual sterile fashion. A supraumbilical transverse incision was made after incising the skin, subcutaneous tissue, and the fascia. The laparoscopic camera port was placed and pneumo was created. Another 5-mm port was placed in the lower abdomen. The 12-mm port was placed in the left lower quadrant. Grasper and dissector were introduced. The appendix appeared to be inflamed. The mesoappendix was resected with a CHIARA. The appendix was taken in an EndoCatch bag, taken out through the umbilical port site and sent off the table for the pathology. There was a proper hemostasis in each and every part of the procedure. The patient had a very mild serous fluid collection in the pelvis that was cleaned with gauze. After proper hemostasis, all the laparoscopic instruments were taken out. All the ports were taken out under vision. The appendix was sent off the table for the pathology. The umbilical port site was closed in layers, the fascia with 0 Vicryl interrupted suture and skin with a 4-0 Monocryl. Dry sterile dressing was applied. The patient tolerated the procedure well. Count of instrument and gauze was correct. There was no apparent complication. The patient was extubated in OR and sent to the postanesthesia care unit in stable condition. Alexandr Wiley MD [facility] # [id number] MTDYee
--- NOTE | 2018-06-19 19:29 | CP.PCM.DIS ---
Provider - Provider Date of Admission: 06/16/18 11:50 Attending physician: Siva Sharma MD Hospital Course - Lab Results Lab Results: Most Recent Lab Values WBC 8.7 K/uL (4.8-10.8) 06/17/18 06:07 RBC 3.51 Mil/uL (3.80-5.20) L 06/17/18 06:07 Hgb 10.8 g/dL (11.0-16.0) L 06/17/18 06:07 Hct 31.9 % (34.0-47.0) L 06/17/18 06:07 MCV 91.0 fL (81.0-99.0) 06/17/18 06:07 MCH 30.8 pg (27.0-31.0) 06/17/18 06:07 MCHC 33.8 g/dL (33.0-37.0) 06/17/18 06:07 RDW 12.5 % (11.5-14.5) 06/17/18 06:07 Plt Count 208 K/uL (130-400) 06/17/18 06:07 MPV 10.5 fL (7.2-11.7) 06/17/18 06:07 Neut % (Auto) 67.5 % (50.0-75.0) 06/17/18 06:07 Lymph % (Auto) 26.3 % (20.0-40.0) 06/17/18 06:07 [place] % (Auto) 4.3 % (0.0-10.0) 06/17/18 06:07 Eos % (Auto) 1.4 % (0.0-4.0) 06/17/18 06:07 Baso % (Auto) 0.5 % (0.0-2.0) 06/17/18 06:07 Neut # (Auto) 5.9 K/uL (1.8-7.0) 06/17/18 06:07 Lymph # (Auto) 2.3 K/uL (1.0-4.3) 06/17/18 06:07 [place] # (Auto) 0.4 K/uL (0.0-0.8) 06/17/18 06:07 Eos # (Auto) 0.1 K/uL (0.0-0.7) 06/17/18 06:07 Baso # (Auto) 0.0 K/uL (0.0-0.2) 06/17/18 06:07 PT 9.4 SECONDS (9.7-12.2) L 06/16/18 06:36 INR 0.9 06/16/18 06:36 APTT 37 SECONDS (21-34) H 06/16/18 06:36 Sodium 137 mmol/L (132-148) 06/17/18 06:07 Potassium 3.7 mmol/L (3.6-5.2) 06/17/18 06:07 Chloride 101 mmol/L (98-107) 06/17/18 06:07 Carbon Dioxide 23 mmol/L (22-30) 06/17/18 06:07 Anion Gap 16 (10-20) 06/17/18 06:07 BUN 8 mg/dL (7-17) 06/17/18 06:07 Creatinine 0.7 mg/dL (0.7-1.2) 06/17/18 06:07 Est GFR ( Amer) > 60 06/17/18 06:07 Est GFR (Non-Af Amer) > 60 06/17/18 06:07 POC Glucose (mg/dL) 204 mg/dL (65-110) H 06/17/18 11:06 Random Glucose 108 mg/dL (65-105) H 06/17/18 06:07 Calcium 7.9 mg/dl (8.6-10.4) L 06/17/18 06:07 Phosphorus 4.3 mg/dL (2.5-4.5) 06/17/18 06:07 Magnesium 1.7 mg/dL (1.6-2.3) 06/17/18 06:07 Total Bilirubin 0.3 mg/dL (0.2-1.3) 06/16/18 07:34 AST 17 U/L (14-36) 06/16/18 07:34 ALT 16 U/L (9-52) 06/16/18 07:34 Alkaline Phosphatase 141 U/L (38-126) H 06/16/18 07:34 Total Protein 7.0 g/dL (6.3-8.3) 06/16/18 07:34 Albumin 3.8 g/dL (3.5-5.0) 06/16/18 07:34 Globulin 3.2 gm/dL (2.2-3.9) 06/16/18 07:34 Albumin/Globulin Ratio 1.2 (1.0-2.1) 06/16/18 07:34 Urine Color Straw (YELLOW) 06/16/18 06:53 Urine Clarity Clear (Clear) 06/16/18 06:53 Urine pH 6.0 (5.0-8.0) 06/16/18 06:53 Ur Specific [place] 1.011 (1.003-1.030) 06/16/18 06:53 Urine Protein Negative mg/dL (NEGATIVE) 06/16/18 06:53 Urine Glucose (UA) Normal mg/dL (Normal) 06/16/18 06:53 Urine Ketones Negative mg/dL (NEGATIVE) 06/16/18 06:53 Urine Blood Negative (NEGATIVE) 06/16/18 06:53 Urine Nitrate Negative (NEGATIVE) 06/16/18 06:53 Urine Bilirubin Negative (NEGATIVE) 06/16/18 06:53 Urine Urobilinogen Normal mg/dL (0.2-1.0) 06/16/18 06:53 Ur Leukocyte Esterase 3+ Berny/uL (Negative) H 06/16/18 06:53 Urine WBC (Auto) 9 /hpf (0-5) H 06/16/18 06:53 Urine RBC (Auto) 2 /hpf (0-3) 06/16/18 06:53 Ur Squamous Epith Cells 2 /hpf (0-5) 06/16/18 06:53 Urine Bacteria Rare (<OCC) 06/16/18 06:53 Urine HCG, Qual Negative (NEGATIVE) 06/16/18 06:53 Discharge Exam - Head Exam Head Exam: ATRAUMATIC, NORMOCEPHALIC Discharge Plan - Discharge Medications Prescriptions: Sennosides/Docusate Sodium [Colace 2-in-1 Tablet] 1 each PO BID #28 tablet oxyCODONE/Acetaminophen [Percocet 5/325 mg Tab] 1 ea PO Q4H #18 tab - Follow Up Plan Condition: FAIR Disposition: HOME/ ROUTINE Instructions: Appendicitis, Adult (DC), Oxycodone, Docusate and Senna Additional Instructions: Call Dr. Wiley's office for follow up appointment in 2 weeks Leave band-aids on for 5 days, once you remove the outer bandaids you may shower White tape underneath bandaids stay on until they fall off No lifting >10 pounds for 4-6 weeks Take pain medication PRN for pain and stool softener if you take pain medication Call Dr. Wiley's office or come to ER for fever >100.4 after Tylenol, severe pain, or drainage from incisions or any other concerning symptoms. Referrals: Alexandr Wiley MD [Staff Provider] -
== END 2018-06-17 13:05 | disposition home or self-care (01) | DRG 225 ==
LOC: C.ER 06:06 → C.9E 11:50 → C.5S 12:20
PROVIDERS: ADMIT Internal Medicine; ATTEND Internal Medicine
PROC: 0DTJ4ZZ Resection of Appendix, Percutaneous Endoscopic Approach (ICD-10-PCS; principal; 2018-06-16 16:00)
DX: K35.80 Unspecified acute appendicitis (principal); E10.65 Type 1 diabetes mellitus with hyperglycemia; E86.0 Dehydration; E78.00 Pure hypercholesterolemia, unspecified; E06.3 Autoimmune thyroiditis; J45.909 Unspecified asthma, uncomplicated

== ENCOUNTER 2018-10-29 18:23 | Emergency (ER) | payer OTHER ==
[2018-10-29] MEDS ORDERED: Sodium Chloride 0.9% 1,000 ML IV ONE ×3 (19:53→23:11)
--- NOTE | 2018-10-29 20:29 | C.PDOC ---
History Of Present Illness 18 year old female with a history of diabetes, hypothyroid, and asthma presents to the emergency department with complaints of pain under her left rib cage, above her hip radiating from her left back anteriorly for the last two. Patient reports nausea and chills but denies vomiting or diarrhea. She states that she has not experienced symptoms like this before. Patient reports taking Aleve for the pain which provided relief. Patient's PMD is Dr. Sharma. Patient states her LMP was 2-19. She states her pain was 6/10 upon arrival to the ED but is ow 8/10. <Patricia Schultz - Last Filed: 10/29/18 23:11> History Per: Patient History/Exam Limitations: no limitations Onset/Duration Of Symptoms: Days (2) Current Symptoms Are (Timing): Still Present Pain Scale Rating Of: 8 Location Of Pain/Discomfort: LUQ, LLQ Radiation Of Pain To:: Flank Quality Of Discomfort: Sharp, "Pain" Associated Symptoms: Chills, Nausea, Back Pain. denies: Fever, Vomiting, Diarrhea Last Menstral Period: 09-15-18 <Patricia Schultz - Last Filed: 10/29/18 23:11> <Tracey Maurice - Last Filed: 10/31/18 10:53> Time Seen by Provider: 10/29/18 19:12 Chief Complaint (Nursing): GI Problem Past Medical History Reviewed: Historical Data, Nursing Documentation, Vital Signs Vital Signs: Last Vital Signs Temp 98.6 F 10/29/18 18:41 Pulse 96 H 10/29/18 18:41 Resp 17 10/29/18 18:41 BP 127/85 10/29/18 18:41 Pulse Ox 100 10/29/18 18:41 - Medical History PMH: Asthma, Diabetes (Type 1), HTN, Hypercholesterolemia, Hypothyroidism Denies: Chronic Kidney Disease Surgical History: No Surg Hx - [facility] Procedures OTHER SKIN & SUBQ I D (11/07/14) Family History: States: No Known Family Hx - Social History Hx Tobacco Use: No Hx Alcohol Use: No Hx Substance Use: No - Immunization History Hx Tetanus Toxoid Vaccination: Yes Hx Influenza Vaccination: No Hx Pneumococcal Vaccination: No <Patricia Schultz - Last Filed: 10/29/18 23:11> Vital Signs: Last Vital Signs Temp 98.0 F 10/30/18 01:20 Pulse 86 10/30/18 01:20 Resp 20 10/30/18 01:20 BP 122/76 10/30/18 01:20 Pulse Ox 99 10/30/18 01:20 - [facility] Procedures OTHER SKIN & SUBQ I D (11/07/14) <Tracey Maurice - Last Filed: 10/31/18 10:53> Review Of Systems Except As Marked, All Systems Reviewed And Found Negative. Constitutional: Positive for: Chills. Negative for: Fever Cardiovascular: Negative for: Chest Pain Respiratory: Negative for: Cough, Shortness of Breath Gastrointestinal: Positive for: Nausea, Abdominal Pain. Negative for: Vomiting, Diarrhea Musculoskeletal: Positive for: Back Pain Neurological: Negative for: Weakness, Numbness <Patricia Schultz - Last Filed: 10/29/18 23:11> Physical Exam - Physical Exam Appears: Non-toxic, In Acute Distress (moderate) Skin: Normal Color, Warm, Dry Head: Atraumatic, Normacephalic Eye(s): bilateral: Normal Inspection, PERRL, EOMI Nose: Normal Oral Mucosa: Moist Neck: Normal, Supple Chest: Symmetrical, No Tenderness Cardiovascular: Rhythm Regular (tachycardic), No Murmur Respiratory: Normal Breath Sounds, No Rales, No Rhonchi, No Wheezing Gastrointestinal/Abdominal: Soft, Tenderness (left-sided flank tenderness), No Guarding, No Rebound Back: CVA Tenderness (left-sided) Extremity: Normal ROM Neurological/Psych: Oriented x3, Normal Speech, Normal Cognition <Patricia Schultz - Last Filed: 10/29/18 23:11> ED Course And Treatment - Laboratory Results Result Diagrams: 10/29/18 22:07 10/29/18 22:48 O2 Sat by Pulse Oximetry: 100 (RA) Pulse Ox Interpretation: Normal - CT Scan/US CT Abdomen and Pelvis Other Rad Studies (CT/US): Read By Radiologist, Radiology Report Reviewed CT/US Interpretation: IMPRESSION: 1. Evidence of jejunitis. 2. Findings compatible with mesenteric adenitis. <Patricia Schultz - Last Filed: 10/29/18 23:11> - Laboratory Results Result Diagrams: 10/29/18 22:07 10/29/18 22:48 Lab Results: Total Bilirubin 0.7 mg/dL (0.2-1.3) 10/29/18 22:48 AST 25 U/L (14-36) 10/29/18 22:48 ALT < 6 U/L (9-52) L D 10/29/18 22:48 Alkaline Phosphatase 226 U/L (38-126) H D 10/29/18 22:48 Total Protein 7.9 g/dL (6.3-8.3) 10/29/18 22:48 Albumin 4.3 g/dL (3.5-5.0) 10/29/18 22:48 Globulin 3.7 gm/dL (2.2-3.9) 10/29/18 22:48 Albumin/Globulin Ratio 1.2 (1.0-2.1) 10/29/18 22:48 Lipase < 10 U/L (23-300) L 10/29/18 22:48 Urine Color Yellow (YELLOW) 10/29/18 20:52 Urine Clarity Hazy (Clear) 10/29/18 20:52 Urine pH 5.0 (5.0-8.0) 10/29/18 20:52 Ur Specific Fitzwilliam 1.015 (1.003-1.030) 10/29/18 20:52 Urine Protein 1+ mg/dL (NEGATIVE) H 10/29/18 20:52 Urine Glucose (UA) Normal mg/dL (Normal) 10/29/18 20:52 Urine Ketones 1+ mg/dL (NEGATIVE) H 10/29/18 20:52 Urine Blood 2+ (NEGATIVE) H 10/29/18 20:52 Urine Nitrate Negative (NEGATIVE) 10/29/18 20:52 Urine Bilirubin Negative (NEGATIVE) 10/29/18 20:52 Urine Urobilinogen Normal mg/dL (0.2-1.0) 10/29/18 20:52 Ur Leukocyte Esterase 3+ Berny/uL (Negative) H 10/29/18 20:52 Urine WBC (Auto) 131 /hpf (0-5) H 10/29/18 20:52 Urine RBC (Auto) 11 /hpf (0-3) H 10/29/18 20:52 Ur Squamous Epith Cells 3 /hpf (0-5) 10/29/18 20:52 Urine Bacteria Rare (<OCC) 10/29/18 20:52 Hyaline Casts 6-10 /lpf (0-2) H 10/29/18 20:52 <Tracey Maurice - Last Filed: 10/31/18 10:53> Medical Decision Making Medical Decision Making: Plan: CT Abdomen and Pelvis Chemistry CBC NaCl IV Fluids Toradol 30mg IVP Tylenol 975mg PO Urine Culture POC Urine Urinalysis Spoke to the patient's PMD Dr. Sharma who agreed on admission. <Patricia Schultz - Last Filed: 10/29/18 23:11> Disposition <Patricia Schultz - Last Filed: 10/29/18 23:11> - Disposition Disposition Time: 10:53 <Tracey Maurice - Last Filed: 10/31/18 10:53> - Disposition Disposition: AGAINST MEDICAL ADVICE Condition: GOOD Prescriptions: Ciprofloxacin [Cipro] 1 tab PO BID #14 tab Forms: [facility] (Spanish) - Clinical Impression Clinical Impression: UTI (urinary tract infection) - Scribe Statement The provider has reviewed the documentation as recorded by the Scribe (Ludwin Shannon) Provider Attestation: All medical record entries made by the Scribe were at my direction and p ersonally dictated by me. I have reviewed the chart and agree that the record accurately reflects my personal performance of the history, physical exam, medical decision making, and the department course for this patient. I have also personally directed, reviewed, and agree with the discharge instructions and disposition. <Patricia Schultz - Last Filed: 10/29/18 23:11> Addendum Addendum: 10/31/18 10:50 Ct abdomen shows mild thickening of bladder wall. urine cx pos for E.Coli that sensitive to Cipro. Patient was contacted [phone] and informed of the finding. Rx for Cipro 500 mg was sent to patient's pharmacy. <Tracey Maurice - Last Filed: 10/31/18 10:53>
[2018-10-29 21:06] LABS: SQUAMOUS EPITHIAL 3 /hpf (0-5); URINE BACTERIA RARE (<OCC); URINE BILIRUBIN NEGATIVE (NEGATIVE); URINE BLOOD 2+ (NEGATIVE); URINE CLARITY Hazy (Clear); URINE COLOR Yellow (YELLOW); URINE GLUCOSE (UA) NORMAL (Normal); URINE LEUKOCYTE ESTERASE 3+ Leu/uL (Negative); URINE PROTEIN 1+ mg/dL (NEGATIVE); URINE UROBILINOGEN NORMAL mg/dL (0.2-1.0)
[2018-10-29 22:18] LABS: BASO % 0.3 % (0.0-2.0); EOS % 0.3 % (0.0-4.0); HEMOGLOBIN 11.8 g/dL (11.0-16.0); LYMPH # 1.6 K/uL (1.0-4.3); LYMPH % 11.4 % (20.0-40.0); MEAN CELL VOLUME 93.5 fL (81.0-99.0); MEAN CORPUSCULAR HEMOGLOBIN 30.8 pg (27.0-31.0); MEAN CORPUSCULAR HGB CONC 32.9 g/dL (33.0-37.0); MEAN PLATELET VOLUME 10.5 fL (7.2-11.7); MONO # 1.2 K/uL (0.0-0.8); MONO % 8.4 % (0.0-10.0); NEUT # 11.5 K/uL (1.8-7.0); NEUT % 79.6 % (50.0-75.0); RBC 3.84 Mil/uL (3.80-5.20); RED CELL DISTRIBUTION WIDTH 14.1 % (11.5-14.5); WHITE BLOOD COUNT 14.5 K/uL (4.8-10.8)
[2018-10-29 23:04] LABS: ALB/GLOB RATIO 1.2 (1.0-2.1); ALBUMIN 4.3 g/dL (3.5-5.0); ALT/SGPT < 6 U/L (9-52); AST/SGOT 25 U/L (14-36); BLOOD UREA NITROGEN 14 mg/dL (7-17); CALCIUM 9.4 mg/dl (8.6-10.4); GFR NON-AFRICAN AMERICAN > 60; LIPASE < 10 U/L (23-300)
[2018-10-30 00:25] VITALS: RESP 20
[2018-10-30 02:14] VITALS: BP 122/76; PULSE 86; TEMP 98; O2SAT 99
--- NOTE | 2018-10-30 10:23 | CT ---
Date of service: 10/29/2018 PROCEDURE: CT Abdomen and Pelvis without intravenous contrast HISTORY: left cva pain COMPARISON: 06/16/2018 TECHNIQUE: Without contrast.. Contrast dose: 0 Radiation dose: Total exam DLP = 372.71 mGy-cm. This CT exam was performed using one or more of the following dose reduction techniques: Automated exposure control, adjustment of the mA and/or kV according to patient size, and/or use of iterative reconstruction technique. FINDINGS: LOWER THORAX: Unremarkable. LIVER: Mild hepatomegaly. Liver measures 20.4 cm craniocaudal. Smooth contour. No mass. No biliary dilatation. Normal attenuation. GALLBLADDER AND BILE DUCTS: Unremarkable. PANCREAS: Unremarkable. No gross lesion or ductal dilatation. SPLEEN: Unremarkable. ADRENALS: Unremarkable. No mass. KIDNEYS AND URETERS: Unremarkable. No hydronephrosis. No solid mass. VASCULATURE: Unremarkable. No aortic aneurysm. No aortic atherosclerotic calcification or mural plaque present. BOWEL: Unremarkable. No obstruction. No gross mural thickening. APPENDIX: Postoperative changes at cecal apex consistent with prior appendectomy. PERITONEUM: Trace fluid in cul-de-sac. LYMPH NODES: Unremarkable. No enlarged lymph nodes. BLADDER: Mild thickening of the bladder wall though the bladder is suboptimally distended. Nevertheless, consider the possibility of cystitis and correlate with urinalysis. REPRODUCTIVE: Unremarkable uterus. BONES: No acute fracture. OTHER FINDINGS: None. IMPRESSION: Mild thickening of bladder wall. Possible cystitis. Mild hepatomegaly. Otherwise unremarkable. The preliminary findings for this examination were reported by [facility] at 10:21 p.m. on 10/29/2018. There is discordance of this report with the preliminary findings. The finding of mildly thickened bladder wall was not described in the preliminary report of this examination.
== END 2018-10-30 01:20 | disposition left against medical advice (07) ==
LOC: C.ER 18:23 → UNDOADMOB 23:28 → C.9E 23:28 → C.6T 10-30 00:01 → C.9E 10-30 00:01 → C.ER 10-30 01:20
DX: N39.0 Urinary tract infection, site not specified (principal); I10 Essential (primary) hypertension; E10.9 Type 1 diabetes mellitus without complications; E78.00 Pure hypercholesterolemia, unspecified; F17.200 Nicotine dependence, unspecified, uncomplicated
CPT/HCPCS: 74176; 80053; 81001; 81025; 82948; 83690; 85025; 87040; 87086; 87181; 96374; 99285; J0696; J1885; J7030